=== PATIENT | female | born 1940 | race Asian ===

== ENCOUNTER 2016-11-05 09:01 | Outpatient (CLI) | payer OTHER ==
[~2016-11-05 09:01] MED LIST: AMLO10TA PO; AMOX500C85 PO; BENZONATATE200 MG PO; HUMULIN PEN SC
[2016-11-05 09:36] LABS: PLATELET COUNT 378 K/uL (152-353)
[2016-11-05 10:14] LABS: POTASSIUM 4.5 mmol/L (3.6-5.2)
== END 2016-11-05 19:39 | disposition home or self-care (01) ==
LOC: LABW 09:01
PROVIDERS: Internal Medicine
DX: E11.9 Type 2 diabetes mellitus without complications (principal)
CPT/HCPCS: 36415; 80053; 80061; 81000; 82043; 82570; 83036; 84443; 85027

== ENCOUNTER 2017-10-01 08:35 | Outpatient (CLI) | payer OTHER ==
[2017-10-01 09:44] LABS: POTASSIUM 3.8 mmol/L (3.6-5.2)
[2017-10-01 10:13] LABS: PLATELET COUNT 190 K/uL (152-353)
== END 2017-10-02 04:34 | disposition home or self-care (01) ==
LOC: LABW 08:35
PROVIDERS: Internal Medicine
DX: E11.8 Type 2 diabetes mellitus with unspecified complications (principal)
CPT/HCPCS: 36415; 80053; 80061; 81000; 82043; 82570; 83036; 84443; 85027

== ENCOUNTER 2017-10-22 10:14 | Outpatient (CLI) | payer OTHER | END 2017-10-22 18:44 | disposition home or self-care (01) | LOC: MAMMO 10:14 | DX: Z12.31 Encounter for screening mammogram for malignant neoplasm of breast (principal) ==

== ENCOUNTER 2018-02-11 10:44 | Outpatient (CLI) | payer OTHER | END 2018-02-11 19:27 | disposition home or self-care (01) | LOC: LABW 10:44 | DX: R30.0 Dysuria (principal) | CPT/HCPCS: 81000; 87077; 87086; 87088; 87186 ==

== ENCOUNTER 2018-05-28 08:40 | Outpatient (CLI) | payer OTHER ==
[2018-05-28 09:31] LABS: PLATELET COUNT 390 K/uL (152-353)
[2018-05-28 09:55] LABS: POTASSIUM 4.4 mmol/L (3.6-5.2)
== END 2018-05-28 19:33 | disposition home or self-care (01) ==
LOC: LABW 08:40
PROVIDERS: Internal Medicine
DX: E11.9 Type 2 diabetes mellitus without complications (principal)
CPT/HCPCS: 36415; 80053; 80061; 81000; 82043; 82570; 83036; 84443; 85027

== ENCOUNTER 2018-09-22 08:40 | Outpatient (CLI) | payer OTHER ==
[2018-09-22 09:20] LABS: POTASSIUM 4.5 mmol/L (3.6-5.2)
== END 2018-09-22 21:00 | disposition home or self-care (01) ==
LOC: LABW 08:40
PROVIDERS: Internal Medicine
DX: E11.9 Type 2 diabetes mellitus without complications (principal)
CPT/HCPCS: 36415; 80053; 80061; 83036

== ENCOUNTER 2018-10-30 10:34 | Outpatient (CLI) | payer OTHER | END 2018-10-30 22:22 | disposition home or self-care (01) | LOC: LAB 10:34 | DX: R39.89 Other symptoms and signs involving the genitourinary system (principal) | CPT/HCPCS: 81000; 87086; 87088 ==

== ENCOUNTER 2019-01-22 09:53 | Outpatient (CLI) | payer OTHER ==
[2019-01-22 10:30] LABS: PLATELET COUNT 311 K/uL (152-353)
[2019-01-22 11:29] LABS: POTASSIUM 4.2 mmol/L (3.6-5.2)
== END 2019-01-22 23:19 | disposition home or self-care (01) ==
LOC: LABW 09:53
PROVIDERS: Physician Assistant
DX: I10 Essential (primary) hypertension (principal); E11.9 Type 2 diabetes mellitus without complications; R53.1 Weakness; R45.1 Restlessness and agitation; E55.9 Vitamin D deficiency, unspecified; Z79.899 Other long term (current) drug therapy
CPT/HCPCS: 36415; 80053; 82306; 83735; 84439; 84443; 85027

== ENCOUNTER 2019-01-25 08:34 | Emergency (ER) | payer OTHER ==
[~2019-01-25] VITALS: Ht 167.6 cm; Wt 102.1 kg
[2019-01-25 08:38] VITALS: TEMP 97.2
[2019-01-25] MEDS ORDERED: LORA0.5T17 PO (09:05)
[2019-01-25] MEDS ORDERED: MIRALAX3350 N1 PO (09:05)
[2019-01-25 09:08] LABS: PLATELET COUNT 310 K/uL (152-353)
[2019-01-25] MEDS ORDERED: HUMULIN N100 UNIT/M SC (09:08)
[2019-01-25 09:17] LABS: POTASSIUM 4.6 mmol/L (3.6-5.2)
[2019-01-25 11:15] VITALS: BP 154/62
== END 2019-01-25 11:15 | disposition home or self-care (01) ==
LOC: ED 08:34
PROVIDERS: Internal Medicine
DX: J18.9 Pneumonia, unspecified organism (principal); E11.65 Type 2 diabetes mellitus with hyperglycemia; Z79.4 Long term (current) use of insulin
CPT/HCPCS: 80053; 81000; 85027; 96372; 99283; J0696

== ENCOUNTER 2019-03-30 09:56 | Outpatient (CLI) | payer OTHER ==
[~2019-03-30 09:56] MED LIST changes: +HUMULIN N100 UNIT/M SC; +LORA0.5T17 PO; +MIRALAX3350 N1 PO
== END 2019-03-30 23:43 | disposition home or self-care (01) ==
LOC: RAD 09:56
DX: R29.898 Other symptoms and signs involving the musculoskeletal system (principal); R40.0 Somnolence

== ENCOUNTER 2019-04-01 09:45 | Outpatient (CLI) | payer OTHER | END 2019-04-01 20:15 | disposition home or self-care (01) | LOC: CT 09:45 | DX: R29.898 Other symptoms and signs involving the musculoskeletal system (principal); R40.0 Somnolence ==

== ENCOUNTER 2019-09-13 09:11 | Outpatient (CLI) | payer OTHER ==
[2019-09-13 09:47] LABS: POTASSIUM 3.9 mmol/L (3.6-5.2)
[2019-09-13 09:50] LABS: PLATELET COUNT 400 K/uL (152-353)
== END 2019-09-13 19:15 | disposition home or self-care (01) ==
LOC: LABW 09:11
PROVIDERS: Internal Medicine
DX: Z00.00 Encounter for general adult medical examination without abnormal findings (principal); Z13.820 Encounter for screening for osteoporosis; E11.9 Type 2 diabetes mellitus without complications; E55.9 Vitamin D deficiency, unspecified; R82.998 Other abnormal findings in urine
CPT/HCPCS: 36415; 80053; 80061; 81000; 82306; 83036; 84439; 84443; 85027; 87086; 87088

== ENCOUNTER 2019-09-23 10:33 | Outpatient (CLI) | payer OTHER | END 2019-09-23 23:05 | disposition home or self-care (01) | LOC: RAD 10:33 | DX: Z12.31 Encounter for screening mammogram for malignant neoplasm of breast (principal); Z13.820 Encounter for screening for osteoporosis; N95.8 Other specified menopausal and perimenopausal disorders ==

== ENCOUNTER 2019-10-18 09:52 | Outpatient (CLI) | payer OTHER | END 2019-10-18 21:34 | disposition home or self-care (01) | LOC: MAMMO 09:52 | DX: Z12.31 Encounter for screening mammogram for malignant neoplasm of breast (principal); R92.8 Other abnormal and inconclusive findings on diagnostic imaging of breast ==

== ENCOUNTER 2021-01-17 09:58 | Outpatient (CLI) | payer OTHER ==
[2021-01-17 10:24] LABS: PLATELET COUNT 385 K/uL (152-353)
== END 2021-01-17 21:29 | disposition home or self-care (01) ==
LOC: LABW 09:58
PROVIDERS: ATTEND Internal Medicine
DX: E11.9 Type 2 diabetes mellitus without complications (principal)
CPT/HCPCS: 36415; 80053; 80061; 83036; 84439; 84443; 85027

== ENCOUNTER 2021-01-18 12:32 | Outpatient (CLI) | payer OTHER | END 2021-01-18 22:27 | disposition home or self-care (01) | LOC: LAB 12:32 | PROVIDERS: ATTEND Internal Medicine | DX: E11.9 Type 2 diabetes mellitus without complications (principal); R82.998 Other abnormal findings in urine | CPT/HCPCS: 81000; 82043; 82570; 87077; 87086; 87088; 87186 ==

== ENCOUNTER 2021-03-20 16:26 | Outpatient (CLI) | payer OTHER | END 2021-03-20 21:38 | disposition home or self-care (01) | LOC: RAD 16:26 | PROVIDERS: ATTEND Internal Medicine | DX: J40 Bronchitis, not specified as acute or chronic (principal) ==

== ENCOUNTER 2021-12-13 16:18 | Outpatient (CLI) | payer OTHER ==
[2021-12-13 17:29] LABS: PLATELET COUNT 432 K/uL (152-353)
[2021-12-13 18:02] LABS: POTASSIUM 4.3 mmol/L (3.6-5.2)
== END 2021-12-13 21:30 | disposition home or self-care (01) ==
LOC: LAB 16:18
PROVIDERS: ATTEND Internal Medicine
DX: E11.9 Type 2 diabetes mellitus without complications (principal); K59.01 Slow transit constipation
CPT/HCPCS: 80053; 80061; 83036; 84439; 84443; 85027

== ENCOUNTER 2021-12-14 12:19 | Outpatient (CLI) | payer OTHER | END 2021-12-14 21:02 | disposition home or self-care (01) | LOC: LAB 12:19 | PROVIDERS: ATTEND Internal Medicine | DX: E11.9 Type 2 diabetes mellitus without complications (principal); K59.01 Slow transit constipation; R82.998 Other abnormal findings in urine | CPT/HCPCS: 81000; 87077; 87086; 87088; 87186 ==

== ENCOUNTER 2022-09-04 09:00 | Outpatient (CLI) | payer OTHER ==
[2022-09-04 09:24] LABS: PLATELET COUNT 408 K/uL (152-353)
[2022-09-04 09:33] LABS: POTASSIUM 3.9 mmol/L (3.6-5.2)
== END 2022-09-04 19:01 | disposition home or self-care (01) ==
LOC: LABW 09:00
PROVIDERS: ATTEND Internal Medicine
DX: E11.9 Type 2 diabetes mellitus without complications (principal); R82.998 Other abnormal findings in urine
CPT/HCPCS: 36415; 80053; 80061; 81000; 83036; 84439; 84443; 85027; 87077; 87086; 87088; 87186

== ENCOUNTER 2022-10-06 10:28 | Emergency (ER) | payer OTHER ==
[~2022-10-06] VITALS: Ht 167.6 cm; Wt 102.1 kg
[2022-10-06 11:21] LABS: PLATELET COUNT 476 K/uL (152-353)
[2022-10-06 11:24] LABS: POTASSIUM 4.2 mmol/L (3.6-5.2)
[2022-10-06 12:34] VITALS: BP 111/72; TEMP 98.2
== END 2022-10-06 12:38 | disposition home or self-care (01) ==
LOC: ED 10:28
PROVIDERS: Family Medicine
DX: J18.9 Pneumonia, unspecified organism (principal); R05.8 Other specified cough; G35 Multiple sclerosis; F03.90 Unspecified dementia, unspecified severity, without behavioral disturbance, psychotic disturbance, mood disturbance, and anxiety
CPT/HCPCS: 80053; 85027; 93005; 99283

== ENCOUNTER 2022-12-06 12:28 | Outpatient (CLI) | payer OTHER | END 2022-12-06 19:42 | disposition home or self-care (01) | LOC: MRI 12:28 | PROVIDERS: ATTEND Psychiatry & Neurology Neurology | DX: G35 Multiple sclerosis (principal) | CPT/HCPCS: 36415; 82565; 84520; A9576 ==

== ENCOUNTER 2022-12-11 09:46 | Outpatient (CLI) | payer OTHER | END 2022-12-11 19:03 | disposition home or self-care (01) | LOC: MRI 09:46 | PROVIDERS: ATTEND Psychiatry & Neurology Neurology | DX: G35 Multiple sclerosis (principal) | CPT/HCPCS: A9576 ==

== ENCOUNTER 2023-03-28 09:37 | Outpatient (CLI) | payer OTHER | END 2023-03-28 19:40 | disposition home or self-care (01) | LOC: LABW 09:37 | PROVIDERS: ATTEND Psychiatry & Neurology Neurology | DX: M62.81 Muscle weakness (generalized) (principal) | CPT/HCPCS: 36415; 82085; 82550; 82607; 82746; 84425; 84443; 85652; 86038; 86235; 86334 ==

== ENCOUNTER 2023-05-20 10:35 | Outpatient (CLI) | payer OTHER | END 2023-05-20 20:46 | disposition home or self-care (01) | LOC: RAD 10:35 → LAB 10:35 | PROVIDERS: ATTEND Nurse Practitioner Family | DX: D89.0 Polyclonal hypergammaglobulinemia (principal); E55.9 Vitamin D deficiency, unspecified; E56.8 Deficiency of other vitamins; M06.4 Inflammatory polyarthropathy; R70.0 Elevated erythrocyte sedimentation rate; R82.998 Other abnormal findings in urine | CPT/HCPCS: 81002; 87086; 87088 ==

== ENCOUNTER 2023-06-20 09:47 | Outpatient (CLI) | payer OTHER ==
[2023-06-20 10:23] LABS: PLATELET COUNT 432 K/uL (152-353)
[2023-06-20 10:43] LABS: POTASSIUM 3.9 mmol/L (3.6-5.2)
== END 2023-06-20 19:23 | disposition home or self-care (01) ==
LOC: LABW 09:47
PROVIDERS: ATTEND Nurse Practitioner Family
DX: D89.0 Polyclonal hypergammaglobulinemia (principal); E56.8 Deficiency of other vitamins; M05.79 Rheumatoid arthritis with rheumatoid factor of multiple sites without organ or systems involvement; R70.0 Elevated erythrocyte sedimentation rate; R80.8 Other proteinuria; E55.9 Vitamin D deficiency, unspecified
CPT/HCPCS: 36415; 80053; 81002; 85027